=== PATIENT | female | born 1975 | race Caucasian/White ===

== ENCOUNTER → 2020-11-21 | Outpatient (CLI) | payer OTHER ==
[~2020-11-21] MED LIST: ADIPEX-P37.5 M1 PO; ASPIRIN81 MG PO; FISH OIL 1,0001 EACH PO; FLINTSTONES1 EAC1 PO; HAIR, SKIN & N1 EAC2 PO; PLAVIX75 MG PO
== END ==
LOC: CT 11-20 15:30 → ECHO 11:53 → HEART 5 13:30
DX: Z01.818 Encounter for other preprocedural examination (principal); I37.9 Nonrheumatic pulmonary valve disorder, unspecified; R60.0 Localized edema; I83.93 Asymptomatic varicose veins of bilateral lower extremities; I87.2 Venous insufficiency (chronic) (peripheral)
CPT/HCPCS: 93970; Q9967

== ENCOUNTER → 2021-01-17 | Outpatient (CLI) | payer OTHER ==
[2021-01-17 11:25] LABS: HEMOGLOBIN 12.4 gm/dl (12.3-15.3); RED BLOOD COUNT 4.22 M/UL (4.00-5.10); WHITE BLOOD COUNT 4.2 K/UL (4.5-11.0)
[2021-01-17 11:27] LABS: BUN/CREATININE RATIO 17 (0-10)
== END ==
LOC: OPSV2 10:00
PROVIDERS: Surgery
DX: Z01.818 Encounter for other preprocedural examination (principal); R94.31 Abnormal electrocardiogram [ECG] [EKG]
CPT/HCPCS: 36415; 71046; 80053; 81001; 85025; 85610; 85730; 86850; 86900; 86901; 93005

== ENCOUNTER 2021-01-18 08:21 | Day surgery (SDC) | payer OTHER ==
[~2021-01-18] VITALS: Ht 170.2 cm; Wt 78.0 kg
[~2021-01-18 08:21] MED LIST changes: -ASPIRIN81 MG PO; -FISH OIL 1,0001 EACH PO; -PLAVIX75 MG PO
[2021-01-18] MEDS ORDERED: PLAVIX75 MG PO (16:40)
[2021-01-18] MEDS ORDERED: ASPIRIN81 MG PO (16:41)
[2021-01-18] MEDS ORDERED: FISH OIL 1,0001 EACH PO (16:42)
== END 2021-01-19 10:49 | disposition home or self-care (01) ==
LOC: OR 08:21 → EDSTATUS 09:00 → PROG CARE 19:46 → OR 01-19 10:49
DX: I87.1 Compression of vein (principal)
CPT/HCPCS: 75630; C1725; C1753; C1769; C1876; C1894; J0690; J1644; J2001; J2250; J2405; J2704; J2710; J2720; J3010; J7030; J7040; J7050; J7120; P9045; Q9962